=== PATIENT | male | born 1990 | race African-American/Black ===

== ENCOUNTER 2021-01-09 18:30 | Emergency (ER) | payer SELFPAY ==
[~2021-01-09] VITALS: Ht 188 cm; Wt 150.0 kg
[2021-01-09] MEDS ORDERED: ONDANSETRON HCL 4MG/2ML INJ IV STA (19:09)
[2021-01-09] MEDS ORDERED: MORPHINE SULFATE 4 MG/ML CPJ (NOT FOR IM USE) IV STA (19:09)
[2021-01-09] MEDS ORDERED: SODIUM CHLORIDE 0.9% 1,000 ML IV ONE (19:15)
[2021-01-09] MEDS ORDERED: IBUP-2028 MT (20:20)
[2021-01-09] MEDS ORDERED: HYDR-4001 MT (20:20)
[2021-01-09] MEDS ORDERED: HYDROCODONE/ACETAMINOPHEN 5/325MG TABLET PO PRN (20:45)
[2021-01-09 20:48] VITALS: BP 166/98
== END 2021-01-09 20:54 | disposition home or self-care (01) ==
LOC: ER 18:30
DX: S43.081A Other subluxation of right shoulder joint, initial encounter (principal); W22.8XXA Striking against or struck by other objects, initial encounter; Y93.89 Activity, other specified; Y92.89 Other specified places as the place of occurrence of the external cause; Y99.8 Other external cause status
CPT/HCPCS: 29105; 73030; 96374; 96375; 99284; J2270; J2405; J7030; Z7610